=== PATIENT | male | born 1965 | race Hispanic/Latino ===

== ENCOUNTER 2017-11-15 14:19 | Emergency (ER) | payer OTHER, MEDICARE ==
[~2017-11-15 14:19] MED LIST: BACL10TA PO; DULO30CA51 PO; PREG150C PO; TRAZ-144 PO
[2017-11-15] MEDS ORDERED: ORPHENADRINE CITRATE 30 MG/ML ML ONE (14:45)
[2017-11-15] MEDS ORDERED: KETOROLAC TROMETHAMINE 30MG/ML ONE (14:45)
[2017-11-15 16:25] LABS: BASOPHILS % (AUTO) 0.3 % (0.0-5.0); EOSINOPHILS % (AUTO) 0.6 % (0.0-8.0); HEMATOCRIT 34.2 % (42-54); LYMPHOCYTES % (AUTO) 16.6 % (21.0-51.0); MEAN CORPUSCULAR HEMOGLOBIN 31.8 pg (27.0-33.0); MEAN CORPUSCULAR HGB CONC 36.8 g/dL (32.0-36.0); MEAN CORPUSCULAR VOLUME 86.4 fL (79-99); MONOCYTES % (AUTO) 11.5 % (3.0-13.0); NUCLEATED RED BLOOD CELLS 0.2 % (0.0-0.19); PLATELET COUNT (AUTO) 149 K/uL (130-400); RED BLOOD CELL COUNT(AUTO) 3.96 MIL/uL (4.50-6.20); WHITE BLOOD COUNT (AUTO) 3.5 K/uL (4.8-10.8)
[2017-11-15 16:25] LABS: APPEARANCE,URINE Clear (CLEAR); BILIRUBIN,URINE Negative (NEGATIVE); COLOR,URINE Yellow (YELLOW); GLUCOSE, URINE (UA) Negative (NEGATIVE); KETONES,URINE Negative (NEGATIVE); LEUKOCYTE ESTERASE ,URINE Moderate (NEGATIVE); NITRATE,URINE Negative (NEGATIVE); OCCULT BLOOD,URINE Negative (NEGATIVE); PROTEIN,URINE Negative (NEGATIVE)
[2017-11-15 16:33] LABS: AMPHET/METH SCREEN,URINE NEGATIVE (NEGATIVE); BARBITURATE SCREEN, URINE NEGATIVE (NEGATIVE); BENZODIAZEPINES SCREEN,URINE NEGATIVE (NEGATIVE); CANNABINOID SCREEN,URINE NEGATIVE (NEGATIVE); COCAINE SCREEN,URINE POSITIVE (NEGATIVE); OPIATE SCREEN,URINE NEGATIVE (NEGATIVE); PHENCYCLIDINE SCREEN,URINE NEGATIVE (NEGATIVE)
[2017-11-15 16:35] LABS: CREATININE 0.8 mg/dL (0.5-1.5); POTASSIUM 3.7 mmol/L (3.5-5.1)
[2017-11-15 16:44] LABS: ALBUMIN 2.7 g/dL (3.5-5.0); BILIRUBIN,TOTAL 0.5 mg/dL (0.2-1.0)
[2017-11-15 16:53] LABS: RBC,URINE 0-1 /HPF (0-1)
[2017-11-15 16:54] LABS: BACTERIA,URINE Rare /HPF (None Seen); SQUAMOUS EPITHELIAL CELL,UR Rare /LPF (0-2)
== END 2017-11-15 16:44 | disposition home or self-care (01) ==
LOC: EDH 14:19
DX: G89.29 Other chronic pain (principal); M79.2 Neuralgia and neuritis, unspecified; M54.2 Cervicalgia; Z98.890 Other specified postprocedural states
CPT/HCPCS: 36415; 70450; 72125; 80053; 80305; 81001; 85025; 96372 ×2; 99285; J1885; J2360

== ENCOUNTER 2017-11-21 12:10 | Emergency (ER) | payer OTHER, MEDICARE ==
[2017-11-21 12:55] LABS: BASOPHILS % (AUTO) 0.2 % (0.0-5.0); EOSINOPHILS % (AUTO) 0.5 % (0.0-8.0); HEMATOCRIT 42.4 % (42-54); LYMPHOCYTES % (AUTO) 13.3 % (21.0-51.0); MEAN CORPUSCULAR HEMOGLOBIN 30.2 pg (27.0-33.0); MEAN CORPUSCULAR HGB CONC 35.4 g/dL (32.0-36.0); MEAN CORPUSCULAR VOLUME 85.5 fL (79-99); MONOCYTES % (AUTO) 4.8 % (3.0-13.0); NEUTROPHILS % (AUTO) 81.2 % (40.0-77.0); NUCLEATED RED BLOOD CELLS 0.1 % (0.0-0.19); PLATELET COUNT (AUTO) 283 K/uL (130-400); RED BLOOD CELL COUNT(AUTO) 4.96 MIL/uL (4.50-6.20); RED CELL DISTRIBUTION WIDTH 13.9 % (11.0-15.5); WHITE BLOOD COUNT (AUTO) 6.3 K/uL (4.8-10.8)
[2017-11-21 13:03] LABS: CARBON DIOXIDE 27 mmol/L (21-32); CHLORIDE 98 mmol/L (101-111); CREATININE 1.1 mg/dL (0.5-1.5); GLOMERULAR FILTR. RATE CALC 75 mL/min (>60); GLUCOSE,RANDOM 98 mg/dL (70-105); POTASSIUM 4.1 mmol/L (3.5-5.1); SODIUM SERUM 137 mmol/L (136-145); UREA NITROGEN, BLOOD 9 mg/dL (7-18)
[2017-11-21 13:16] LABS: ALANINE AMINOTRANSFERASE 46 U/L (12-78); ALBUMIN 3.4 g/dL (3.5-5.0); ASPARTATE AMINOTRANSFERASE 25 U/L (10-37); BILIRUBIN,TOTAL 0.9 mg/dL (0.2-1.0); CREATINE KINASE MB < 0.5 ng/mL (0.5-3.6); CREATINE KINASE, TOTAL 19 U/L (21-232); TOTAL PROTEIN, SERUM 9.6 g/dL (6.0-8.3)
[2017-11-21] MEDS ORDERED: ASPIRIN 325 MG TABLET ONE (13:33)
== END 2017-11-21 15:03 | disposition home or self-care (01) ==
LOC: EDH 12:10
DX: R07.89 Other chest pain (principal); M54.2 Cervicalgia; G89.29 Other chronic pain; M54.9 Dorsalgia, unspecified
CPT/HCPCS: 36415; 71045; 80053; 82550; 82553; 84484; 85025; 93005

== ENCOUNTER 2017-12-17 16:18 | Inpatient (IN) | payer OTHER, MEDICARE ==
[~2017-12-17] VITALS: Ht 188 cm; Wt 85.5 kg
[~2017-12-17 16:18] MED LIST changes: -TRAZ-144 PO; +TRAZ-185 PO
[2017-12-17 17:45] LABS: BASOPHILS % (AUTO) 0.3 % (0.0-5.0); EOSINOPHILS % (AUTO) 1.7 % (0.0-8.0); HEMATOCRIT 37.1 % (42-54); LYMPHOCYTES % (AUTO) 16.4 % (21.0-51.0); MEAN CORPUSCULAR HEMOGLOBIN 29.6 pg (27.0-33.0); MEAN CORPUSCULAR HGB CONC 35.8 g/dL (32.0-36.0); MEAN CORPUSCULAR VOLUME 82.5 fL (79-99); MONOCYTES % (AUTO) 7.2 % (3.0-13.0); NEUTROPHILS % (AUTO) 74.4 % (40.0-77.0); NUCLEATED RED BLOOD CELLS 0.1 % (0.0-0.19); PLATELET COUNT (AUTO) 192 K/uL (130-400)
[2017-12-17 17:56] LABS: CREATININE 0.9 mg/dL (0.5-1.5); POTASSIUM 3.8 mmol/L (3.5-5.1)
[2017-12-17 18:01] LABS: ALBUMIN 3.3 g/dL (3.5-5.0); BILIRUBIN,TOTAL 0.7 mg/dL (0.2-1.0); TOTAL PROTEIN, SERUM 8.6 g/dL (6.0-8.3)
[2017-12-17] MEDS ORDERED: ASPIRIN 325 MG TABLET ONE (18:13)
[2017-12-18] MEDS ORDERED: POTASSIUM CHLORIDE 10% ELIXIR 20 MEQ/15 ML UDCUP PO PRN (02:00)
[2017-12-18] MEDS ORDERED: POTASSIUM CHLORIDE 20 MEQ ERTAB PO PRN (02:00)
[2017-12-18] MEDS ORDERED: ACETAMINOPHEN 325 MG TAB PO PRN (02:00)
[2017-12-18] MEDS ORDERED: HYDRALAZINE HCL 20 MG/ML VIAL IV PRN (02:00)
[2017-12-18] MEDS ORDERED: LIDOCAINE HCL-MPF 1% 2ML VIAL IVP PRN (02:00)
[2017-12-18] MEDS ORDERED: ONDANSETRON HCL MDV 20ML 2 MG/ML VIAL IV PRN (02:00)
[2017-12-18] MEDS ORDERED: POTASSIUM CHLORIDE 20MEQ/100ML 100 ML IV PRN (02:00)
[2017-12-18] MEDS ORDERED: ISOVUE-370 50ML VIAL IV ONE (02:16)
[2017-12-18 04:00] VITALS: BP 135/92
[2017-12-18] MEDS ORDERED: IBUP-14 PO (04:11)
[2017-12-18] MEDS: ACETAMINOPHEN 325 MG TAB PO PRN ×2 (04:18→11:01)
[2017-12-18 08:00] VITALS: BP 117/79
[2017-12-18] MEDS ORDERED: IBUPROFEN 200 MG TABLET PO PRN (09:45)
[2017-12-18 10:08] LABS: MEAN CORPUSCULAR HEMOGLOBIN 28.8 pg (27.0-33.0); MEAN CORPUSCULAR HGB CONC 34.8 g/dL (32.0-36.0); MEAN CORPUSCULAR VOLUME 82.7 fL (79-99); PLATELET COUNT (AUTO) 178 K/uL (130-400); RED BLOOD CELL COUNT(AUTO) 4.23 MIL/uL (4.50-6.20); RED CELL DISTRIBUTION WIDTH 13.8 % (11.0-15.5); WHITE BLOOD COUNT (AUTO) 4.8 K/uL (4.8-10.8)
[2017-12-18] MEDS: FAMOTIDINE 20MG TAB 20 MG TAB PO SCH ×2 (10:48→22:10)
[2017-12-18 11:56] VITALS: BP 123/87
[2017-12-18] MEDS ORDERED: GADOBENATE DIMEGLUMINE 20 ML IV ONE (13:30)
[2017-12-18] MEDS ORDERED: LORAZEPAM 2 MG/ML 1 ML VIAL ONE (15:09)
[2017-12-18] MEDS ORDERED: MORPHINE SULFATE 4 MG/1ML SYG ONE (15:13)
[2017-12-18] MEDS ORDERED: LORAZEPAM 2 MG/ML 1 ML VIAL IVP SCH (15:15)
[2017-12-18] MEDS ORDERED: MORPHINE SULFATE 4 MG/1ML SYG IVP SCH (15:15)
[2017-12-18 15:24] VITALS: BP 119/66
[2017-12-18] MEDS: PREGABALIN 75 MG CAPSULE PO SCH ×2 (17:44→22:10)
[2017-12-18 19:45] VITALS: BP 116/75
[2017-12-18] MEDS ORDERED: KETOROLAC TROMETHAMINE 30MG/ML ONE (23:24)
[2017-12-18 23:45] VITALS: BP 120/75
[2017-12-19 04:15] VITALS: BP 125/94
[2017-12-19 04:27] LABS: AMPHET/METH SCREEN,URINE NEGATIVE (NEGATIVE); BARBITURATE SCREEN, URINE NEGATIVE (NEGATIVE); BENZODIAZEPINES SCREEN,URINE NEGATIVE (NEGATIVE); CANNABINOID SCREEN,URINE NEGATIVE (NEGATIVE); COCAINE SCREEN,URINE POSITIVE (NEGATIVE); OPIATE SCREEN,URINE NEGATIVE (NEGATIVE); PHENCYCLIDINE SCREEN,URINE NEGATIVE (NEGATIVE)
[2017-12-19 08:30] VITALS: BP 126/85
[2017-12-19] MEDS: KETOROLAC TROMETHAMINE 30MG/ML IV PRN ×3 (08:54→20:59)
[2017-12-19] MEDS: PREGABALIN 75 MG CAPSULE PO SCH ×3 (08:55→20:08)
[2017-12-19] MEDS: FAMOTIDINE 20MG TAB 20 MG TAB PO SCH ×2 (08:55→20:08)
[2017-12-19 11:38] VITALS: BP 110/74
[2017-12-19 15:33] VITALS: BP 138/98
[2017-12-19 19:55] VITALS: BP 132/84
[2017-12-19 23:31] VITALS: BP 134/87
[2017-12-20] MEDS: ACETAMINOPHEN 325 MG TAB PO PRN ×2 (00:58→08:11)
[2017-12-20] MEDS: KETOROLAC TROMETHAMINE 30MG/ML IV PRN ×3 (04:11→22:12)
[2017-12-20 08:05] VITALS: BP 122/89
[2017-12-20] MEDS: FAMOTIDINE 20MG TAB 20 MG TAB PO SCH ×2 (08:12→19:45)
[2017-12-20] MEDS: PREGABALIN 75 MG CAPSULE PO SCH ×3 (08:12→19:45)
[2017-12-20] MEDS: HYDROCODONE/ACETAMINOPHEN 5/325 MG TAB PO PRN ×2 (11:04→19:46)
[2017-12-20 11:11] VITALS: BP 123/93
[2017-12-20 16:27] VITALS: BP 111/82
[2017-12-20 19:42] VITALS: BP 138/89
[2017-12-21 00:09] VITALS: BP 132/84
[2017-12-21] MEDS: HYDROCODONE/ACETAMINOPHEN 5/325 MG TAB PO PRN (03:00)
[2017-12-21 04:30] VITALS: BP 150/89
[2017-12-21] MEDS: KETOROLAC TROMETHAMINE 30MG/ML IV PRN ×2 (06:41→13:45)
[2017-12-21 07:00] VITALS: BP 143/89
[2017-12-21] MEDS: FAMOTIDINE 20MG TAB 20 MG TAB PO SCH (09:01)
[2017-12-21] MEDS: PREGABALIN 75 MG CAPSULE PO SCH ×2 (09:01→15:34)
[2017-12-21 11:00] VITALS: BP 133/86
[2017-12-21 16:00] VITALS: BP 138/88
[2017-12-24] MEDS ORDERED: DEXAMETHASONE SOD PHOSPHATE 10MG/ML 1ML VIAL ONE ×2 (10:45→13:50)
[2017-12-24] MEDS ORDERED: GLYCOPYRROLATE 0.2 MG/ML 5 ML VIAL ONE (10:45)
[2017-12-24] MEDS ORDERED: LIDOCAINE PF 2% 5ML ABBOJECT ONE (10:45)
[2017-12-24] MEDS ORDERED: PROPOFOL 10 MG/ML 20ML VIAL IV ONE (10:45)
[2017-12-24] MEDS ORDERED: MIDAZOLAM HCL 1 MG/ML 2ML VIAL ONE ×2 (10:45→12:02)
[2017-12-24] MEDS ORDERED: NEOSTIGMINE 5MG/5ML SYR IV ONE (10:45)
[2017-12-24] MEDS ORDERED: FENTANYL CITRATE PF 50 MCG/1 ML 2ML VIAL ONE ×2 (10:46→13:04)
[2017-12-24] MEDS ORDERED: PHENYLEPHRINE HCL 10 MG/ML 1ML VIAL IV ONE (13:51)
[2017-12-24] MEDS ORDERED: CEFAZOLIN SODIUM 1 GM VIAL ONE (15:06)
== END 2017-12-21 17:51 | DRG 552 ==
LOC: EDH 16:18 → EDHIP 22:55 → OBSVTOIN 22:55 → 3AH 12-18 02:41
PROVIDERS: ADMIT Internal Medicine; ATTEND Internal Medicine
DX: M48.02 Spinal stenosis, cervical region (principal); G82.20 Paraplegia, unspecified; G89.4 Chronic pain syndrome; M54.10 Radiculopathy, site unspecified; Z75.1 Person awaiting admission to adequate facility elsewhere
CPT/HCPCS: 36415; 70450; 70491; 71045; 72156; 72157; 80053; 80305; 84484; 85025; 85027; 85651; 92610; 93005; 97039; A9577; J1885; J2060; J2270; Q9967

== ENCOUNTER 2017-12-23 13:49 | Inpatient (IN) | payer OTHER, MEDICARE ==
[~2017-12-23] VITALS: Ht 188 cm; Wt 82.6 kg
[~2017-12-23 13:49] MED LIST changes: -BACL10TA PO; -DULO30CA51 PO; +IBUP-14 PO; -TRAZ-185 PO
[2017-12-23 14:37] LABS: BASOPHILS % (AUTO) 0.6 % (0.0-5.0); HEMATOCRIT 38.6 % (42-54); LYMPHOCYTES % (AUTO) 25.5 % (21.0-51.0); MEAN CORPUSCULAR HEMOGLOBIN 28.8 pg (27.0-33.0); MEAN CORPUSCULAR HGB CONC 34.9 g/dL (32.0-36.0); MEAN CORPUSCULAR VOLUME 82.6 fL (79-99); MONOCYTES % (AUTO) 5.2 % (3.0-13.0); NEUTROPHILS % (AUTO) 65.7 % (40.0-77.0); PLATELET COUNT (AUTO) 312 K/uL (130-400); RED BLOOD CELL COUNT(AUTO) 4.68 MIL/uL (4.50-6.20); RED CELL DISTRIBUTION WIDTH 13.9 % (11.0-15.5); WHITE BLOOD COUNT (AUTO) 6.3 K/uL (4.8-10.8)
[2017-12-23 14:49] LABS: CREATININE 0.9 mg/dL (0.5-1.5); POTASSIUM 4.4 mmol/L (3.5-5.1)
[2017-12-23 14:51] LABS: ALBUMIN 3.5 g/dL (3.5-5.0); BILIRUBIN,TOTAL 0.4 mg/dL (0.2-1.0); TOTAL PROTEIN, SERUM 9.4 g/dL (6.0-8.3)
[2017-12-23] MEDS ORDERED: ACETAMINOPHEN 325 MG TAB PO PRN ×2 (15:15)
[2017-12-23] MEDS ORDERED: POTASSIUM CHLORIDE 20MEQ/100ML 100 ML IV PRN (15:15)
[2017-12-23] MEDS ORDERED: ONDANSETRON HCL 4 MG/2 ML VIAL IV PRN (15:15)
[2017-12-23] MEDS ORDERED: MAG HYDROX/AL HYDROX/SIMETH ES 30 ML SUSP UDCUP PO PRN (15:15)
[2017-12-23] MEDS ORDERED: LIDOCAINE HCL-MPF 1% 2ML VIAL IVP PRN (15:15)
[2017-12-23] MEDS ORDERED: POTASSIUM CHLORIDE 20 MEQ ERTAB PO PRN (15:15)
[2017-12-23] MEDS ORDERED: NITROGLYCERIN 0.4 MG SL TAB SL PRN (15:15)
[2017-12-23] MEDS ORDERED: MORPHINE SULFATE 4 MG/1ML SYG IV PRN (15:15)
[2017-12-23] MEDS ORDERED: ACETAMINOPHEN-CODEINE 300/30MG TAB PO PRN ×2 (15:15)
[2017-12-23] MEDS ORDERED: POTASSIUM CHLORIDE 10% ELIXIR 20 MEQ/15 ML UDCUP PO PRN (15:15)
[2017-12-23] MEDS ORDERED: GUAIFENESIN-DM 200/20 MG 10 ML PO PRN (15:15)
[2017-12-23] MEDS ORDERED: HYDRALAZINE HCL 20 MG/ML VIAL IV PRN (15:15)
[2017-12-23] MEDS ORDERED: LACTULOSE 20 GM/30 ML UDCUP PO PRN (15:15)
[2017-12-23 15:42] LABS: ERYTHROCYTE SEDIMENTATION RATE 99 MM/HR (0-15)
[2017-12-23] MEDS ORDERED: ONDANSETRON HCL MDV 20ML 2 MG/ML VIAL IV PRN (16:07)
[2017-12-23] MEDS ORDERED: ONDANSETRON HCL MDV 20ML 2 MG/ML VIAL ONE (16:18)
[2017-12-23] MEDS ORDERED: MORPHINE SULFATE 4 MG/1ML SYG ONE (16:19)
[2017-12-23 17:00] VITALS: BP 144/96
[2017-12-23] MEDS: SODIUM CHLORIDE 0.9% 1000ML 1,000 ML IV SCH (17:29)
[2017-12-23] MEDS: FAMOTIDINE 20MG TAB 20 MG TAB PO SCH (19:43)
[2017-12-23 20:02] VITALS: BP 137/88
[2017-12-23] MEDS: MORPHINE SULFATE 4 MG/1ML SYG IV PRN (21:21)
[2017-12-23 23:51] VITALS: BP 153/88
[2017-12-24] VITALS (17 sets, daily range): BP systolic 115–138; BP diastolic 70–94
[2017-12-24] MEDS: SODIUM CHLORIDE 0.9% 1000ML 1,000 ML IV SCH ×2 (05:08→19:49)
[2017-12-24] MEDS: MORPHINE SULFATE 4 MG/1ML SYG IV PRN ×2 (05:16→11:12)
[2017-12-24 05:53] LABS: BASOPHILS % (AUTO) 0.4 % (0.0-5.0); EOSINOPHILS % (AUTO) 1.6 % (0.0-8.0); LYMPHOCYTES % (AUTO) 24.2 % (21.0-51.0); MEAN CORPUSCULAR HEMOGLOBIN 29.1 pg (27.0-33.0); MEAN CORPUSCULAR HGB CONC 35.4 g/dL (32.0-36.0); MEAN CORPUSCULAR VOLUME 82.2 fL (79-99); MONOCYTES % (AUTO) 6.3 % (3.0-13.0); NEUTROPHILS % (AUTO) 67.5 % (40.0-77.0); PLATELET COUNT (AUTO) 288 K/uL (130-400); RED BLOOD CELL COUNT(AUTO) 4.39 MIL/uL (4.50-6.20); RED CELL DISTRIBUTION WIDTH 13.9 % (11.0-15.5)
[2017-12-24 06:25] LABS: CREATININE 0.9 mg/dL (0.5-1.5); HIGH SENSITIVITY CRP 85.04 mg/L (0.0-3.0); MAGNESIUM 2.2 mg/dL (1.80-2.40); POTASSIUM 4.2 mmol/L (3.5-5.1)
[2017-12-24 07:00] LABS: ERYTHROCYTE SEDIMENTATION RATE 92 MM/HR (0-15)
[2017-12-24] MEDS: FAMOTIDINE 20MG TAB 20 MG TAB PO SCH ×2 (09:00→21:14)
[2017-12-24] MEDS ORDERED: LACTATED RINGERS 1000ML 1,000 ML IV ONE (10:46)
[2017-12-24] MEDS ORDERED: BACITRACIN 50,000 UNIT VIAL ONE (12:05)
[2017-12-24] MEDS ORDERED: BUPIVACAINE/EPI/PF 0.25% 30ML VIAL IJ ONE (12:05)
[2017-12-24] MEDS ORDERED: THROMBIN-JMI 20000 UNIT KIT TP ONE (12:06)
[2017-12-24] MEDS: PREGABALIN 75 MG CAPSULE PO SCH ×2 (14:00→21:15)
[2017-12-24] MEDS ORDERED: MANNITOL 20% 500ML BAG 500 ML IV ONE (14:12)
[2017-12-24] MEDS ORDERED: GENTAMICIN 80 MG/NS 100 ML PB 100 ML IV ONE (14:40)
[2017-12-24] MEDS ORDERED: CALDOLOR 800MG+NS 250ML 250 ML IV ONE (15:07)
[2017-12-24] MEDS: LACTATED RINGERS 1000ML 1,000 ML IV SCH (15:13)
[2017-12-24] MEDS: DEXAMETHASONE SOD PHOSPHATE 4 MG/ML 1ML VIAL IVP SCH ×2 (15:15→21:15)
[2017-12-24] MEDS ORDERED: IBUPROFEN 200 MG TABLET PO PRN (15:15)
[2017-12-24] MEDS ORDERED: CEFAZOLIN 2GM / 50 ML 50 ML IV SCH (15:15)
[2017-12-24] MEDS ORDERED: PROMETHAZINE HCL 25 MG/ML 1ML AMPULE IM PRN (15:15)
[2017-12-24] MEDS ORDERED: SODIUM CHLORIDE 0.9% 10 ML VIAL IVP PRN (15:15)
[2017-12-24] MEDS ORDERED: MORPHINE SULFATE 2 MG/ML 1ML SYG IVP PRN (15:15)
[2017-12-24] MEDS ORDERED: FENTANYL CITRATE PF 50 MCG/1 ML 2ML VIAL ONE (15:44)
[2017-12-24] MEDS ORDERED: MEPERIDINE-PF 25 MG/ML SYG ONE (15:59)
[2017-12-24] MEDS ORDERED: CEFAZOLIN SODIUM 1 GM VIAL IVP ONE (18:00)
[2017-12-24] MEDS: MORPHINE SULFATE 4 MG/1ML SYG IVP PRN (21:20)
[2017-12-25] VITALS (7 sets, daily range): BP systolic 121–160; BP diastolic 77–102
[2017-12-25] MEDS: HYDROCODONE/ACETAMINOPHEN 5/325 MG TAB PO PRN ×3 (01:26→09:54)
[2017-12-25] MEDS: LACTATED RINGERS 1000ML 1,000 ML IV SCH ×2 (04:33→17:53)
[2017-12-25] MEDS: DEXAMETHASONE SOD PHOSPHATE 4 MG/ML 1ML VIAL IVP SCH ×4 (04:44→20:34)
[2017-12-25] MEDS: MORPHINE SULFATE 4 MG/1ML SYG IVP PRN ×3 (06:46→20:35)
[2017-12-25] MEDS: PREGABALIN 75 MG CAPSULE PO SCH ×3 (09:50→20:34)
[2017-12-25] MEDS: FAMOTIDINE 20MG TAB 20 MG TAB PO SCH ×2 (09:50→20:34)
[2017-12-25] MEDS: SODIUM CHLORIDE 0.9% 1000ML 1,000 ML IV SCH ×2 (10:07→21:53)
[2017-12-25] MEDS ORDERED: VANCOMYCIN PROTOCOL PER PHARMACY IV SCH (16:15)
[2017-12-25] MEDS: LEVOFLOXACIN 500 MG/D5W 100 ML 100 ML IV SCH (17:00)
[2017-12-25] MEDS ORDERED: COMPOUND IV REFRIGERATED 1 EACH IVSOLN MISC PRN (17:00)
[2017-12-25] MEDS ORDERED: VANCOMYCIN 2 GM in SODIUM CHLORIDE 0.9% 500ML 500 ML IV ONE (17:00)
[2017-12-26] MEDS: VANCOMYCIN 1GM+NS 250ML 250 ML IV SCH ×3 (01:03→17:37)
[2017-12-26] MEDS: DEXAMETHASONE SOD PHOSPHATE 4 MG/ML 1ML VIAL IVP SCH ×4 (03:44→22:10)
[2017-12-26] MEDS: LACTATED RINGERS 1000ML 1,000 ML IV SCH ×2 (03:53→20:33)
[2017-12-26] MEDS: MORPHINE SULFATE 4 MG/1ML SYG IVP PRN ×3 (03:57→19:57)
[2017-12-26 04:19] VITALS: BP 141/93
[2017-12-26 06:09] LABS: HEMATOCRIT 35.8 % (42-54); MEAN CORPUSCULAR HEMOGLOBIN 29.3 pg (27.0-33.0); MEAN CORPUSCULAR HGB CONC 35.7 g/dL (32.0-36.0); MEAN CORPUSCULAR VOLUME 82.1 fL (79-99); PLATELET COUNT (AUTO) 295 K/uL (130-400); RED BLOOD CELL COUNT(AUTO) 4.36 MIL/uL (4.50-6.20); RED CELL DISTRIBUTION WIDTH 13.7 % (11.0-15.5); WHITE BLOOD COUNT (AUTO) 10.2 K/uL (4.8-10.8)
[2017-12-26 06:24] LABS: CREATININE 0.7 mg/dL (0.5-1.5); POTASSIUM 4.1 mmol/L (3.5-5.1)
[2017-12-26 08:00] VITALS: BP 136/76
[2017-12-26] MEDS: PREGABALIN 75 MG CAPSULE PO SCH ×3 (10:02→19:56)
[2017-12-26] MEDS: FAMOTIDINE 20MG TAB 20 MG TAB PO SCH ×2 (10:02→19:56)
[2017-12-26 11:48] VITALS: BP 140/70
[2017-12-26] MEDS: LEVOFLOXACIN 500 MG/D5W 100 ML 100 ML IV SCH (15:23)
[2017-12-26] MEDS: SODIUM CHLORIDE 0.9% 1000ML 1,000 ML IV SCH (15:24)
[2017-12-26 16:00] VITALS: BP 116/79
[2017-12-26 20:39] VITALS: BP 132/93
[2017-12-27] VITALS: BP 124/87
[2017-12-27] MEDS: VANCOMYCIN 1.5 GM in N.S. 250 ML IV SCH ×3 (00:44→17:00)
[2017-12-27] MEDS: SODIUM CHLORIDE 0.9% 1000ML 1,000 ML IV SCH ×2 (03:53→19:19)
[2017-12-27 04:03] VITALS: BP 130/79
[2017-12-27] MEDS: DEXAMETHASONE SOD PHOSPHATE 4 MG/ML 1ML VIAL IVP SCH (04:13)
[2017-12-27] MEDS: MORPHINE SULFATE 4 MG/1ML SYG IVP PRN ×4 (04:13→23:56)
[2017-12-27 05:30] LABS: HEMATOCRIT 36.5 % (42-54); MEAN CORPUSCULAR HEMOGLOBIN 28.7 pg (27.0-33.0); MEAN CORPUSCULAR VOLUME 81.9 fL (79-99); PLATELET COUNT (AUTO) 286 K/uL (130-400); RED BLOOD CELL COUNT(AUTO) 4.45 MIL/uL (4.50-6.20); RED CELL DISTRIBUTION WIDTH 13.7 % (11.0-15.5); WHITE BLOOD COUNT (AUTO) 9.4 K/uL (4.8-10.8)
[2017-12-27 08:00] VITALS: BP 143/87
[2017-12-27] MEDS: FAMOTIDINE 20MG TAB 20 MG TAB PO SCH ×2 (10:08→20:18)
[2017-12-27] MEDS: PREGABALIN 75 MG CAPSULE PO SCH ×3 (10:08→20:18)
[2017-12-27 11:44] VITALS: BP 126/85
[2017-12-27 16:00] VITALS: BP 147/86
[2017-12-27] MEDS: LEVOFLOXACIN 500 MG/D5W 100 ML 100 ML IV SCH (17:00)
[2017-12-27 20:14] VITALS: BP 132/79
[2017-12-27] MEDS: LACTATED RINGERS 1000ML 1,000 ML IV SCH (20:15)
[2017-12-27] MEDS: HYDROCODONE/ACETAMINOPHEN 5/325 MG TAB PO PRN (20:19)
[2017-12-28] VITALS (8 sets, daily range): BP systolic 112–140; BP diastolic 74–117
[2017-12-28] MEDS: VANCOMYCIN 1.5 GM in N.S. 250 ML IV SCH (01:47)
[2017-12-28 05:28] LABS: HEMATOCRIT 38.8 % (42-54); MEAN CORPUSCULAR HGB CONC 33.9 g/dL (32.0-36.0); MEAN CORPUSCULAR VOLUME 82.6 fL (79-99); NUCLEATED RED BLOOD CELLS 0.1 % (0.0-0.19); PLATELET COUNT (AUTO) 238 K/uL (130-400); RED CELL DISTRIBUTION WIDTH 13.8 % (11.0-15.5); WHITE BLOOD COUNT (AUTO) 7.1 K/uL (4.8-10.8)
[2017-12-28 05:41] LABS: CREATININE 0.8 mg/dL (0.5-1.5); POTASSIUM 4.2 mmol/L (3.5-5.1)
[2017-12-28] MEDS: SODIUM CHLORIDE 0.9% 1000ML 1,000 ML IV SCH ×2 (09:37→23:55)
[2017-12-28] MEDS: PREGABALIN 75 MG CAPSULE PO SCH ×3 (09:46→20:45)
[2017-12-28] MEDS: FAMOTIDINE 20MG TAB 20 MG TAB PO SCH ×2 (09:46→20:45)
[2017-12-28] MEDS: MORPHINE SULFATE 4 MG/1ML SYG IVP PRN ×3 (09:46→20:55)
[2017-12-28] MEDS: LACTATED RINGERS 1000ML 1,000 ML IV SCH (12:33)
[2017-12-28] MEDS: HYDROCODONE/ACETAMINOPHEN 5/325 MG TAB PO PRN (13:44)
[2017-12-28] MEDS: LEVOFLOXACIN 500 MG/D5W 100 ML 100 ML IV SCH (16:20)
[2017-12-29] MEDS: VANCOMYCIN 1.5 GM in N.S. 250 ML IV SCH ×3 (00:07→16:31)
[2017-12-29] MEDS: LACTATED RINGERS 1000ML 1,000 ML IV SCH ×2 (01:53→15:35)
[2017-12-29 05:21] VITALS: BP 114/81
[2017-12-29] MEDS: MORPHINE SULFATE 4 MG/1ML SYG IVP PRN ×3 (06:40→18:15)
[2017-12-29 07:00] VITALS: BP 114/77
[2017-12-29] MEDS: PREGABALIN 75 MG CAPSULE PO SCH ×2 (08:44→15:06)
[2017-12-29] MEDS: FAMOTIDINE 20MG TAB 20 MG TAB PO SCH (08:44)
[2017-12-29 11:09] VITALS: BP 98/61
[2017-12-29] MEDS: SODIUM CHLORIDE 0.9% 1000ML 1,000 ML IV SCH (15:06)
[2017-12-29 15:29] VITALS: BP 106/68
[2017-12-29] MEDS: LEVOFLOXACIN 500 MG/D5W 100 ML 100 ML IV SCH (17:23)
== END 2017-12-29 19:07 | DRG 28 ==
LOC: EDH 13:49 → EDHIP 15:15 → 4AH 16:54
PROVIDERS: ADMIT Internal Medicine; ATTEND Internal Medicine
PROC: 00NW0ZZ Release Cervical Spinal Cord, Open Approach (ICD-10-PCS; principal; 2017-12-24 12:40)
PROC: 00B Central Nervous System and Cranial Nerves, Excision (ICD-10-PCS; 2017-12-24 12:40)
PROC: 4A11X4G Monitoring of Peripheral Nervous Electrical Activity, Intraoperative, External Approach (ICD-10-PCS; 2017-12-24 12:40)
DX: G06.1 Intraspinal abscess and granuloma (principal); G82.50 Quadriplegia, unspecified; M48.02 Spinal stenosis, cervical region; G95.9 Disease of spinal cord, unspecified; E11.42 Type 2 diabetes mellitus with diabetic polyneuropathy; M46.22 Osteomyelitis of vertebra, cervical region; N39.0 Urinary tract infection, site not specified; M46.26 Osteomyelitis of vertebra, lumbar region; N31.9 Neuromuscular dysfunction of bladder, unspecified; M48.061 Spinal stenosis, lumbar region without neurogenic claudication; G89.4 Chronic pain syndrome; I10 Essential (primary) hypertension; Z53.20 Procedure and treatment not carried out because of patient's decision for unspecified reasons; E66.9 Obesity, unspecified; R13.10 Dysphagia, unspecified; Z87.891 Personal history of nicotine dependence; Z91.19 Patient's noncompliance with other medical treatment and regimen; Z99.3 Dependence on wheelchair; Z79.4 Long term (current) use of insulin; Z68.23 Body mass index [BMI] 23.0-23.9, adult; Z28.21 Immunization not carried out because of patient refusal
CPT/HCPCS: 36415; 72020; 74230; 80048; 80053; 80202; 82948; 83605; 83735; 85025; 85027; 85651; 86141; 87040; 87070; 87076; 87088; 87116; 87186; 87205; 87206; 88108; 88304; 88305; 92611; 97039; A4344; J0690; J1100; J1580; J1741; J1956; J2175; J2270; J2550; J3010; J3370; J3490; J7030; J7040; J7120

== ENCOUNTER → 2018-02-22 | Outpatient (CLI) | payer OTHER, MEDICARE | END | disposition home or self-care (01) | LOC: RAH 07:51 | PROVIDERS: ATTEND Internal Medicine | DX: K74.60 Unspecified cirrhosis of liver (principal); R16.2 Hepatomegaly with splenomegaly, not elsewhere classified | CPT/HCPCS: 76700; 93975 ==

== ENCOUNTER → 2019-06-02 | Outpatient (CLI) | payer OTHER, MEDICARE ==
[~2019-06-02] MED LIST changes: +GADODIAMIDE 10 MMOL/20 ML VIAL IV ONE
== END | disposition home or self-care (01) ==
LOC: RAH 13:38
PROVIDERS: ATTEND Internal Medicine
DX: M47.22 Other spondylosis with radiculopathy, cervical region (principal); M25.78 Osteophyte, vertebrae; M48.02 Spinal stenosis, cervical region
CPT/HCPCS: 72156; A9579

== ENCOUNTER → 2019-06-07 | Outpatient (CLI) | payer OTHER, MEDICARE | END | disposition home or self-care (01) | LOC: RAH 07:52 | PROVIDERS: ATTEND Internal Medicine | DX: M47.26 Other spondylosis with radiculopathy, lumbar region (principal); M47.24 Other spondylosis with radiculopathy, thoracic region; M48.02 Spinal stenosis, cervical region; G64 Other disorders of peripheral nervous system | CPT/HCPCS: 72157; 72158; A9579 ==

== ENCOUNTER 2019-06-08 15:32 | Emergency (ER) | payer OTHER, MEDICARE ==
[~2019-06-08 15:32] MED LIST changes: -GADODIAMIDE 10 MMOL/20 ML VIAL IV ONE
[2019-06-08 15:59] LABS: BASOPHILS % (AUTO) 0.4 % (0.0-5.0); EOSINOPHILS % (AUTO) 1.5 % (0.0-8.0); HEMATOCRIT 41.6 % (42-54); LYMPHOCYTES % (AUTO) 30.8 % (21.0-51.0); MEAN CORPUSCULAR HEMOGLOBIN 30.7 pg (27.0-33.0); MEAN CORPUSCULAR HGB CONC 36.3 g/dL (32.0-36.0); MEAN CORPUSCULAR VOLUME 84.7 fL (79-99); MONOCYTES % (AUTO) 8.9 % (3.0-13.0); NEUTROPHILS % (AUTO) 58.4 % (40.0-77.0); NUCLEATED RED BLOOD CELLS 0.1 % (0.0-0.19); PLATELET COUNT (AUTO) 162 K/uL (130-400); RED BLOOD CELL COUNT(AUTO) 4.91 MIL/uL (4.50-6.20); RED CELL DISTRIBUTION WIDTH 13.9 % (11.0-15.5); WHITE BLOOD COUNT (AUTO) 5.2 K/uL (4.8-10.8)
[2019-06-08 16:09] LABS: POTASSIUM 3.8 mmol/L (3.5-5.1)
[2019-06-08 16:13] LABS: ALBUMIN 3.9 g/dL (3.5-5.0); BILIRUBIN,TOTAL 0.4 mg/dL (0.2-1.0); CRP QUANTITATIVE 4.4 mg/L (0.00-9.0); TOTAL PROTEIN, SERUM 7.5 g/dL (6.0-8.3)
[2019-06-08 16:48] LABS: AMPHET/METH SCREEN,URINE NEGATIVE (NEGATIVE); BARBITURATE SCREEN, URINE NEGATIVE (NEGATIVE); BENZODIAZEPINES SCREEN,URINE NEGATIVE (NEGATIVE); CANNABINOID SCREEN,URINE NEGATIVE (NEGATIVE); COCAINE SCREEN,URINE NEGATIVE (NEGATIVE); OPIATE SCREEN,URINE NEGATIVE (NEGATIVE); PHENCYCLIDINE SCREEN,URINE NEGATIVE (NEGATIVE)
[2019-06-08 17:00] LABS: ERYTHROCYTE SEDIMENTATION RATE 6 MM/HR (0-20)
[2019-06-08] MEDS ORDERED: ONDANSETRON HCL 4 MG/2 ML VIAL ONE (17:24)
[2019-06-08] MEDS ORDERED: MORPHINE SULFATE 4 MG/1ML SYG ONE (17:24)
== END 2019-06-08 18:17 | disposition home or self-care (01) ==
LOC: EDH 15:32
DX: G89.29 Other chronic pain (principal); M54.6 Pain in thoracic spine; G62.9 Polyneuropathy, unspecified; Z98.890 Other specified postprocedural states
CPT/HCPCS: 36415; 80053; 80305; 85025; 85651; 86140; 96374; 96375; 99284; J2270; J2405

== ENCOUNTER → 2019-09-12 | Outpatient (CLI) | payer OTHER, MEDICARE | END | disposition home or self-care (01) | LOC: RAH 08:36 | PROVIDERS: ATTEND Neurological Surgery | DX: M43.22 Fusion of spine, cervical region (principal) | CPT/HCPCS: 72040 ==

== ENCOUNTER → 2021-04-11 | Outpatient (CLI) | payer OTHER, MEDICARE ==
[~2021-04-11] MED LIST changes: +GADOTERATE MEGLUMINE 10 MMOL/20 ML VIAL IV ONE
== END | disposition home or self-care (01) ==
LOC: RAH 15:24
PROVIDERS: ATTEND Internal Medicine
DX: M48.061 Spinal stenosis, lumbar region without neurogenic claudication (principal); M54.16 Radiculopathy, lumbar region; G82.50 Quadriplegia, unspecified
CPT/HCPCS: 72158; A9575

== ENCOUNTER → 2021-10-23 | Outpatient (CLI) | payer OTHER, MEDICARE ==
[~2021-10-23] MED LIST changes: -GADOTERATE MEGLUMINE 10 MMOL/20 ML VIAL IV ONE
== END | disposition home or self-care (01) ==
LOC: RAH 14:04
PROVIDERS: ATTEND Neurological Surgery
DX: M47.26 Other spondylosis with radiculopathy, lumbar region (principal); M48.061 Spinal stenosis, lumbar region without neurogenic claudication; M25.78 Osteophyte, vertebrae; Z98.890 Other specified postprocedural states
CPT/HCPCS: 72131

== ENCOUNTER 2023-02-13 20:28 | Emergency (ER) | payer OTHER, MEDICARE ==
[~2023-02-13] VITALS: Ht 188 cm; Wt 87.5 kg
[2023-02-13] MEDS ORDERED: ORPHENADRINE CITRATE 30 MG/ML ML IM ONE (21:00)
[2023-02-13] MEDS ORDERED: MORPHINE 4 MG SYG IVP ONE (21:00)
[2023-02-14] MEDS ORDERED: MORPHINE 2 MG SYG ONE (01:14)
[2023-02-14 01:19] LABS: APPEARANCE,URINE CLEAR (CLEAR); BILIRUBIN,URINE NEGATIVE (NEGATIVE); COLOR,URINE LIGHT-YELLOW (YELLOW); GLUCOSE, URINE (UA) NEGATIVE (NEGATIVE); KETONES,URINE NEGATIVE (NEGATIVE); LEUKOCYTE ESTERASE ,URINE 250 Leu/uL (NEGATIVE); NITRATE,URINE NEGATIVE (NEGATIVE); OCCULT BLOOD,URINE NEGATIVE (NEGATIVE); PH,URINE 6.5 (5.0-8.0); PROTEIN,URINE NEGATIVE (NEGATIVE)
[2023-02-14 01:22] LABS: RBC,URINE 0-1 /HPF (0-1); SQUAMOUS EPITHELIAL CELL,UR RARE /HPF (0-2)
[2023-02-14] MEDS ORDERED: MORPHINE 4 MG SYG IVP ONE (01:30)
[2023-02-14] MEDS ORDERED: ACET-2079 PO (02:11)
[2023-02-14 02:43] VITALS: BP 113/62
== END 2023-02-14 02:51 | disposition home or self-care (01) ==
LOC: EDH 20:28
DX: S40.011A Contusion of right shoulder, initial encounter (principal); S70.01XA Contusion of right hip, initial encounter; G89.29 Other chronic pain; M54.59 Other low back pain; I10 Essential (primary) hypertension; N20.0 Calculus of kidney; Z79.899 Other long term (current) drug therapy; Z98.890 Other specified postprocedural states; W18.39XA Other fall on same level, initial encounter; Y93.89 Activity, other specified; Y92.89 Other specified places as the place of occurrence of the external cause; Y99.8 Other external cause status
CPT/HCPCS: 99285; 96374; 72131; 87088; 81001; 72170; 73030; 96372; 96376; J2270 ×2

== ENCOUNTER → 2023-03-23 | Outpatient (CLI) | payer OTHER, MEDICARE ==
[~2023-03-23] MED LIST changes: +ACET-2079 PO
== END | disposition home or self-care (01) ==
LOC: RAH 08:28
PROVIDERS: ATTEND Nurse Practitioner Family
DX: M79.604 Pain in right leg (principal)
CPT/HCPCS: 73502

== ENCOUNTER 2023-06-11 14:18 | Emergency (ER) | payer MEDICARE, OTHER ==
[~2023-06-11] VITALS: Ht 188 cm; Wt 89.8 kg
[2023-06-11] MEDS ORDERED: CEFAZOLIN SODIUM 1 GM VIAL IM ONE (16:30)
[2023-06-11] MEDS ORDERED: HYDROCODONE/ACETAMINOPHEN 5/325 MG TAB PO ONE (16:30)
[2023-06-11] MEDS ORDERED: TETANUS/DIPHTHERIA TOXOID [ADULT] 0.5 ML VIAL IM ONE (16:30)
[2023-06-11] MEDS ORDERED: CEPH500B PO (17:41)
[2023-06-11 18:14] VITALS: BP 132/78; PULSE 74; RESP 18; O2SAT 98
== END 2023-06-11 18:20 | disposition home or self-care (01) ==
LOC: EDH 14:18
DX: S61.211A Laceration without foreign body of left index finger without damage to nail, initial encounter (principal); I10 Essential (primary) hypertension; F32.A Depression, unspecified; F41.9 Anxiety disorder, unspecified; Z79.899 Other long term (current) drug therapy; W27.0XXA Contact with workbench tool, initial encounter; Y93.89 Activity, other specified; Y92.89 Other specified places as the place of occurrence of the external cause; Y99.8 Other external cause status
CPT/HCPCS: 99284; 90714; 73130; 96372; 90471; 12002; J0690

== ENCOUNTER → 2023-07-13 | Outpatient (CLI) | payer OTHER ==
[~2023-07-13] MED LIST changes: +CEPH500B PO
== END | disposition home or self-care (01) ==
LOC: RAH 14:59
PROVIDERS: ATTEND Internal Medicine
DX: R22.2 Localized swelling, mass and lump, trunk (principal)
CPT/HCPCS: 76604

== ENCOUNTER → 2023-08-10 | Outpatient (CLI) | payer OTHER | END | disposition home or self-care (01) | LOC: RAH 14:09 | PROVIDERS: ATTEND Internal Medicine | DX: R22.2 Localized swelling, mass and lump, trunk (principal) | CPT/HCPCS: 71250 ==

== ENCOUNTER → 2023-09-03 | Outpatient (CLI) | payer OTHER | END | disposition home or self-care (01) | LOC: RAH 12:49 | PROVIDERS: ATTEND Nurse Practitioner Family | DX: M16.11 Unilateral primary osteoarthritis, right hip (principal); M25.551 Pain in right hip; M54.50 Low back pain, unspecified; M47.816 Spondylosis without myelopathy or radiculopathy, lumbar region; M51.36 Other intervertebral disc degeneration, lumbar region | CPT/HCPCS: 72100; 73502 ==

== ENCOUNTER 2023-10-01 08:46 | Day surgery (SDC) | payer OTHER ==
[2023-09-28 12:07] LABS: BASOPHILS # (AUTO) 0.02 K/uL (0.00-0.20); BASOPHILS % (AUTO) 0.7 % (0.0-5.0); EOSINOPHILS # (AUTO) 0.05 K/uL (0.00-0.70); EOSINOPHILS % (AUTO) 1.9 % (0.0-8.0); HEMATOCRIT 43.3 % (42-54); IMMATURE GRANULOCYTE ABSOLUTE 0.02 K/uL (0-1); LYMPHOCYTES # (AUTO) 1.1 K/uL (1.0-4.8); LYMPHOCYTES % (AUTO) 39.8 % (21.0-51.0); MEAN CORPUSCULAR HEMOGLOBIN 28.5 pg (27.0-33.0); MEAN CORPUSCULAR HGB CONC 34.4 g/dL (32.0-36.0); MEAN CORPUSCULAR VOLUME 82.8 fL (79-99); MONOCYTES # (AUTO) 0.3 K/uL (0.1-1.0); NEUTROPHILS # (AUTO) 1.3 K/uL (1.8-7.7); NEUTROPHILS % (AUTO) 46.9 % (40.0-77.0); PLATELET COUNT (AUTO) 163 K/uL (130-400); RED BLOOD CELL COUNT(AUTO) 5.23 MIL/uL (4.50-6.20); RED CELL DISTRIBUTION WIDTH 13.6 % (11.0-15.5); WHITE BLOOD COUNT (AUTO) 2.7 K/uL (4.8-10.8)
[2023-09-28 12:35] VITALS: BP 160/110; PULSE 80; RESP 15
[2023-09-28 13:31] LABS: BAND NEUTROPHILS % (MANUAL) 1 % (0-2); BASOPHILS % (MANUAL) 1 % (0-2); EOSINOPHILS % (MANUAL) 6 % (1-6); LYMPHOCYTES % (MANUAL) 36 % (22-44); MAN.DIFF COMMENT-IMPRESSION MANUAL DIFFERENTIAL; MONOCYTES % (MANUAL) 7 % (2-9); PLATELET MORPHOLOGY COMMENT ADEQUATE; REACTIVE LYMPHOCYTES 4 % (0-0); SEGMENTED NEUTROPHILS % 45 % (40-70); TOTAL CELLS COUNTED 100
[~2023-10-01] VITALS: Ht 157.5 cm; Wt 92.9 kg
[2023-10-01] VITALS (18 sets, daily range): BP systolic 129–161; BP diastolic 90–99; PULSE 65–76; RESP 12–20
[~2023-10-01 08:46] MED LIST changes: -ACET-2079 PO; +AMLO2.5T4 PO; -CEPH500B PO; -IBUP-14 PO; -PREG150C PO; +PREG300C PO
[2023-10-01] MEDS ORDERED: CEFAZOLIN SODIUM 2 GM VIAL ONE (09:20)
[2023-10-01] MEDS ORDERED: LACTATED RINGERS 1000ML 1,000 ML IV ONE (09:20)
[2023-10-01] MEDS ORDERED: DEXAMETHASONE SOD PHOSPHATE 10MG/ML 1ML VIAL ONE (09:49)
[2023-10-01] MEDS ORDERED: LIDOCAINE PF 100MG/5ML (2%) SYRINGE 5ML ONE (09:49)
[2023-10-01] MEDS ORDERED: GLYCOPYRROLATE 0.2 MG/ML 5 ML VIAL ONE (09:50)
[2023-10-01] MEDS ORDERED: MIDAZOLAM HCL 1 MG/ML 2ML VIAL ONE (09:50)
[2023-10-01] MEDS ORDERED: ONDANSETRON 4MG INJ ONE ×2 (09:50→11:26)
[2023-10-01] MEDS ORDERED: FENTANYL CITRATE PF 50 MCG/1 ML 2ML VIAL ONE (09:51)
[2023-10-01] MEDS ORDERED: PROPOFOL 10 MG/ML 20ML VIAL IV ONE ×2 (09:51→10:59)
[2023-10-01] MEDS ORDERED: LIDOCAINE HCL 1% 20 ML VIAL ONE (10:02)
[2023-10-01] MEDS ORDERED: BUPIVACAINE/PF 0.5% 30ML VIAL ONE (10:03)
[2023-10-01] MEDS ORDERED: KETAMINE 50MG/ML SYRINGE 50 MG/ML DISP.SYRIN ONE (10:09)
[2023-10-01] MEDS ORDERED: LIDOCAINE HCL 1% 20 ML VIAL MISC ONE (10:31)
[2023-10-01] MEDS ORDERED: BUPIVACAINE/PF 0.5% 30ML VIAL INJ ONE (10:32)
[2023-10-01] MEDS ORDERED: MEPERIDINE-PF 25 MG/ML SYG ONE (11:26)
== END 2023-10-01 12:55 | disposition home or self-care (01) ==
LOC: DAH 08:46
PROVIDERS: ATTEND Student in an Organized Health Care Education/Training Program
DX: D17.1 Benign lipomatous neoplasm of skin and subcutaneous tissue of trunk (principal); Z79.01 Long term (current) use of anticoagulants; Z98.890 Other specified postprocedural states; Z87.891 Personal history of nicotine dependence
CPT/HCPCS: 85025; 36415; 21554; 88304; A6260; J7030; J7120; J3010; J1100; J2001; J2250; J2704 ×2; J2405 ×2; J3490 ×2; J0665 ×2; J2175; J0690; A4930 ×2; A4215; A4223; A4222; A4221; A4606; G0168

== ENCOUNTER → 2024-02-15 | Outpatient (CLI) | payer OTHER | END | disposition home or self-care (01) | LOC: RAH 12:24 | PROVIDERS: ATTEND Nurse Practitioner Family | DX: M25.551 Pain in right hip (principal); J18.9 Pneumonia, unspecified organism; R29.6 Repeated falls | CPT/HCPCS: 71046; 73502 ==

== ENCOUNTER → 2024-05-13 | Outpatient (CLI) | payer OTHER | END | disposition home or self-care (01) | LOC: RAH 09:25 | PROVIDERS: ATTEND Student in an Organized Health Care Education/Training Program | DX: K80.20 Calculus of gallbladder without cholecystitis without obstruction (principal); R10.9 Unspecified abdominal pain | CPT/HCPCS: 76700 ==

== ENCOUNTER → 2024-10-06 | Outpatient (CLI) | payer OTHER, MEDICARE ==
--- NOTE | 2024-10-06 16:51 | HMCIMG ---
US SOFT TISSUE ABD/ABD WALL REASON: LOCALIZED SWELLING. COMPARISON: None TECHNIQUE: Right chest wall ultrasound study was performed. FINDINGS: Over the region of interest, prominent tissues are noted of right chest when compared to left chest. This measures 3.1 cm on the right and 2.4 cm on the left. Clinical correlation is recommended. IMPRESSION: Findings the described above.
== END | disposition home or self-care (01) ==
LOC: RAH 14:40
PROVIDERS: ATTEND Internal Medicine
DX: R22.2 Localized swelling, mass and lump, trunk (principal)
CPT/HCPCS: 76705